=== PATIENT | female | born 1950 | race Caucasian/White ===

== ENCOUNTER 2019-01-10 18:35 | Inpatient (IN) | payer OTHER, MEDICARE ==
[2019-01-10] MEDS ORDERED: NS 1,000 ML IV ONE (19:09)
--- NOTE | 2019-01-10 19:09 | EDPHY ---
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 She was at [facility] on Monday and had free air and imaging with no identified source. Worsening pain since then. Apparently a repeat abdominal CT as an outpatient today showed diffuse colitis with free air and her left upper quadrant. The her surgeon per Dr. Lynne should be Dr. Cohn who was aware. Patient has had normal oral intake today. Pain stills in the left side upper and lower abdomen. A little bit better when she sits up and leans forward. No vomiting or diarrhea. REVIEW OF SYSTEMS: Eye: no change in vision ENT: no sore throat Cardiac: no chest pain or syncope Pulmonary: no cough or SOB Abdomen: HPI Musculoskeletal: no back pain Skin: no rash Neuro: no headache Constitutional: no fever : no urinary symptoms A comprehensive 10 point review of systems is otherwise negative aside from elements mentioned in the history of present illness. PAST MEDICAL HISTORY: Dermatomyositis Social history: Former smoker General Appearance: Alert and conversant, cooperative. Eyes: No scleral icterus. ENT, Mouth: Normal mucous membranes. Respiratory: Normal respiratory effort, breath sounds equal, lungs are clear to auscultation. Cardiovascular: Regular rate and rhythm. Gastrointestinal: Left-sided tenderness but no rebound or guarding. Neurological: Alert, face symmetric, normal motor and sensory in extremities. Skin: Bruising in both AC from previous IV sticks. Musculoskeletal: No peripheral edema. Psychiatric: Not agitated. Emergency Department course/MDM: IV hydrocortisone 100 mg discussed and consented. IV fluid hydration, surgical consultation. 1924: Discussed with Lalit, requested I consult Anitha. Discussed with Anitha at this time; Invanz 1g IV at his specific request. 2024: Discussed with Anitha and Raciel, admit to [facility]. Smoking Status: Former smoker Constitutional: Initial Vital Signs Temperature (C) 36.9 C 01/10/19 18:50 Heart Rate 109 H 01/10/19 18:50 Respiratory Rate 16 01/10/19 18:50 Blood Pressure 193/86 H 01/10/19 18:50 O2 Sat (%) 95 01/10/19 18:50 O2 Delivery Mode Room Air Allergies/Adverse Reactions: No Known Allergies Allergy (Verified 01/10/19 21:14) Home Medications: Medication Instructions Recorded Acetaminophen [Tylenol ES 500 mg 500 - 1,000 mg PO Q6 PRN 01/10/19 (*)] Clobetasol 0.05% [Temovate Topical 25 ml TP DAILY 01/10/19 Solution (RX)] Ergocalciferol [Vitamin D2 (*)] 50,000 unit PO WE 01/10/19 Hydrocortisone 2.5% 1 phillip TP BID 01/10/19 [Hydrocortisone 2.5% cream (*)] Pantoprazole Sodium [Protonix 40mg 40 mg PO DAILY 01/10/19 (*)] Sulfamethox/Tmp 800/160 mg 1 tab PO MOWEFR 01/10/19 [Bactrim Ds] Triamcinolone 0.1% [Triamcinolone 1 phillip TP BID 01/10/19 0.1% Cream (*)] Zolpidem Tartrate [Ambien 5MG (*)] 2.5 - 5 mg PO HS PRN 01/10/19 predniSONE 20 mg PO BID 01/10/19 Medical Decision Making - Data Points Laboratory Results: Laboratory Results 01/10/19 19:25 01/10/19 19:25 01/10/19 01/10/19 19:25 19:25 WBC 8.50 10^3/uL 10^3/uL (3.80-9.50) RBC 4.57 10^6/uL 10^6/uL (4.18-5.33) Hgb 13.3 g/dL g/dL (12.6-16.3) Hct 39.7 % % (38.0-47.0) MCV 86.9 fL fL (81.5-99.8) MCH 29.1 pg pg (27.9-34.1) MCHC 33.5 g/dL g/dL (32.4-36.7) RDW 14.0 % % (11.5-15.2) Plt Count 134 10^3/uL L 10^3/uL (150-400) MPV 12.1 fL H fL (8.7-11.7) Neut % (Auto) 92.3 % H % (39.3-74.2) Lymph % (Auto) 4.2 % L % (15.0-45.0) [place] % (Auto) 2.8 % L % (4.5-13.0) Eos % (Auto) 0.0 % L % (0.6-7.6) Baso % (Auto) 0.1 % L % (0.3-1.7) Nucleat RBC Rel Count 0.0 % % (0.0-0.2) Absolute Neuts (auto) 7.85 10^3/uL H 10^3/uL (1.70-6.50) Absolute Lymphs (auto) 0.36 10^3/uL L 10^3/uL (1.00-3.00) Absolute Monos (auto) 0.24 10^3/uL L 10^3/uL (0.30-0.80) Absolute Eos (auto) 0.00 10^3/uL L 10^3/uL (0.03-0.40) Absolute Basos (auto) 0.01 10^3/uL L 10^3/uL (0.02-0.10) Absolute Nucleated RBC 0.00 10^3/uL 10^3/uL (0-0.01) Immature Gran % 0.6 % % (0.0-1.1) Immature Gran # 0.05 10^3/uL 10^3/uL (0.00-0.10) RBC/WBC/PLT Morphology TNP Platelet Estimate TNP Sodium 132 mEq/L L mEq/L (135-145) Potassium 3.6 mEq/L mEq/L (3.5-5.2) Chloride 101 mEq/L mEq/L (97-110) Carbon Dioxide 23 mEq/l mEq/l (22-31) Anion Gap 8 mEq/L mEq/L (6-14) BUN 24 mg/dL H mg/dL (7-23) Creatinine 0.8 mg/dL mg/dL (0.6-1.0) Estimated GFR > 60 Glucose 182 mg/dL H mg/dL (70-100) Calcium 8.5 mg/dL mg/dL (8.5-10.4) Medications Given: Discontinued Medications Acetaminophen (Tylenol) 1,000 mg PO ONCE ONE Stop: 01/10/19 20:54 Last Admin: 01/10/19 20:56 Dose: 1,000 mg Hydrocortisone (Solucortef) 100 mg IVP EDNOW ONE Stop: 01/10/19 19:19 Last Admin: 01/10/19 19:31 Dose: 100 mg Sodium Chloride (Ns) 1,000 mls @ 0 mls/hr IV EDNOW ONE; Wide Open PRN Reason: Protocol Stop: 01/10/19 19:10 Last Admin: 01/10/19 19:31 Dose: 1,000 mls Ertapenem 1 gm/ Sodium (Chloride) 100 mls @ 200 mls/hr IV EDNOW ONE PRN Reason: Protocol Stop: 01/10/19 19:57 Last Admin: 01/10/19 20:05 Dose: 100 mls Departure - Departure Disposition: [facility] Acute Clinical Impression: Colitis Condition: Fair
[2019-01-10] MEDS ORDERED: HYDROCORTISONE 100 MG/2 ML VIAL IVP ONE (19:18)
[2019-01-10] MEDS ORDERED: ERTAPENEM 1 GM in NS 100 ML IV ONE (19:28)
[2019-01-10 19:35] LABS: PLATELET COUNT 134 10^3/uL (150-400)
[2019-01-10] MEDS ORDERED: ACETAMINOPHEN 500 MG TAB PO ONE (20:53)
[2019-01-10] MEDS ORDERED: ACETAMINOPHEN 500 MG TAB ONE (20:54)
--- NOTE | 2019-01-10 21:44 | GCON ---
[f rep st] CONSULTATION REFERRING PHYSICIAN: Adrian Smalls MD REASON FOR CONSULTATION: Intra-abdominal free air. 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 In October 2018, she had severe sinusitis with issues with a raspy voice. She was placed on prednisone and Augmentin. In November, she developed right groin pain that then became left groin pain as well, then thigh pain, lower abdominal pain and arm pain. On the , she went to Primary Care. An MASON was positive. She was started on prednisone 20 mg a day for 4 days, which was then increased to 40 mg a day for 1 week. She went to Dermatology, and a biopsy of the skin was performed, which was consistent with dermatomyositis. She went to a certified control systems technician then, who increased her prednisone to 60 mg a day over 1 week and then dropped it to 20 mg twice a day. On November 29, she had the onset of abdominal pain, which increased, and she was admitted to [facility] on the . Free air was noted. She was continued on Solu-Medrol. Zosyn was given, as well as Bactrim. She was started on Protonix and 3 topical creams. She was given IV IgG x3. On the , she had a Gastrografin swallow because of difficulty swallowing. It showed slow GI mobility. She had increasing abdominal pain with pain in her left shoulder. She was discharged from [facility] on the , eating a regular diet. Over the next several days, she had increasing left lower quadrant, left flank pain. She was miserable last night, and today, she had a followup CT which showed extensive colitis involving the ascending and transverse colon, as well as the proximal sigmoid. She has had diverticulosis. She, nonetheless, did eat this evening mashed potatoes, peas, and turkey, and that went down well for her. She presented to [facility] for further evaluation. PAST MEDICAL HISTORY: She smoked from ages [age], at a peak of a half a pack a day. She does not drink alcohol. She had a rash when she was treated for thrombophlebitis. She takes Protonix 40 mg a day; Bactrim 400 mg Monday, Monday, and Monday; prednisone 20 mg twice a day; vitamin D 5000 units daily; Tylenol; and the creams as mentioned above. SURGERIES: Include bilateral rotator cuff surgery. She had a vaginal hysterectomy and left salpingo-oophorectomy with anterior-posterior repair. She has had bilateral cataract extractions. No history of rheumatic fever, tuberculosis or hepatitis, though after IgG treatment, she was noted to be hepatitis B core antigen positive. She was told it may be related to the IgG treatment. REVIEW OF SYSTEMS: She has had hypertensive issues, with her systolics running in the 150s as opposed to 120s since the initiation of the prednisone. She has chronic nasal crusting and has been told to use Vaseline. She has a left upper central veneer. She does have tinnitus. Her last mammogram was in 2017. Her last colonoscopy was last year where she had 1 polyp removed. Diverticulosis was noted. She had 2 episodes of diverticulitis in the past. She has been told her AST has been up transiently. There are no limits on her activities. PHYSICAL EXAMINATION: VITAL SIGNS: Her blood pressure is 151/87 at a rate of 78. Respirations are 16. Room air saturations are 95%. She has received 1 g of Invanz and 100 mg of Solu-Cortef. Her white blood cell count is 8.5. Her hematocrit is 39. Her platelet count is 134. GENERAL: She is awake, alert, quite pleasant, moving around easily. HEAD: The skull is normocephalic and atraumatic. NEUROLOGIC: There are no focal OR lateralizing neurologic findings. NECK: Nontender. LYMPHATICS: There is no cervical, supraclavicular, axillary, or inguinal lymphadenopathy. Thyroid is normal. There are no carotid bruits. LUNGS: Clear to auscultation. CARDIAC: Shows S1, S2 to be normal. ABDOMEN: Nontender to cough. Psoas and obturator signs are negative. She does have slightly hypoactive bowel sounds. To palpation, her abdomen is 1 on a scale of 1-10 in all quadrants. The CAT scan does show the above-mentioned areas of colitis. She has no history of C difficile enterocolitis or recent diarrhea. The free air is near the splenic flexure. IMPRESSION: Patient with dermatomyositis, who is on steroids, as well as Protonix to minimize the adverse affects of steroids on her gastric mucosa. She appears to have had a leak of air into the left upper quadrant. She does not appear to have an acute abdomen at this point, though the steroids can of course masks that. The fact that her white count is normal and she has normoactive bowel sounds, again, makes me less concerned. I have recommended she be admitted to the medicine service, that intravenous antibiotics be continued, that a proton pump inhibitor be used. Follow flat and upright x-ray will be obtained in the morning. The patient understands the necessity for this approach. /[id number]/MODL MTDD
[2019-01-10] MEDS ORDERED: ONDANSETRON 4 MG/2 ML VIAL IVP PRN (22:41)
[2019-01-10] MEDS ORDERED: ONDANSETRON DISINTEGRATING 4 MG TAB PO PRN (22:41)
[2019-01-10] MEDS: ACETAMINOPHEN 500 MG TAB PO SCH (22:55)
[2019-01-10] MEDS: SUCRALFATE 1 GM/10 ML UDCUP PO SCH (23:03)
[2019-01-10] MEDS: NS 1,000 ML IV SCH (23:04)
--- NOTE | 2019-01-11 04:48 | PDGENHP ---
History and Physical - Chief Complaint Abdominal pain - History of Present Illness 68 yo F w/ hx of recently diagnosed dermatomyositis presents with abdominal pain. The patient was recently admitted at [facility] from 01/01-01/06 for evaluation of similar pain. During that admission free air was discovered in her abdomen with unclear source. She remained stable and improved with conservative treatment so she was eventually discharged. She did well for a few days but began to develop LUQ/L flank pain again yesterday. Her log rafter ordered a repeat CT scan for evaluation. This revealed persistent free air and colitis so she was sent to [facility] ED for evaluation. In the ED she was evaluated by general surgery who recommended antibiotics and observation. Case discussed with Dr. Schrader; records reviewed and summarized above. History Information - Allergies/Home Medication List Allergies/Adverse Reactions: No Known Allergies Allergy (Verified 01/10/19 21:14) Home Medications: Acetaminophen [Tylenol ES 500 mg (*)] 500 - 1,000 mg PO Q6 PRN 01/10/19 [Last Taken 01/10/19] Clobetasol 0.05% [Temovate Topical Solution (RX)] 25 ml TP DAILY 01/10/19 [Last Taken 01/03/19] Ergocalciferol [Vitamin D2 (*)] 50,000 unit PO WE 01/10/19 [Last Taken 01/09/19] Hydrocortisone 2.5% [Hydrocortisone 2.5% cream (*)] 1 phillip TP BID 01/10/19 [Last Taken 01/03/19] Pantoprazole Sodium [Protonix 40mg (*)] 40 mg PO DAILY 01/10/19 [Last Taken ] Sulfamethox/Tmp 800/160 mg [Bactrim Ds] 1 tab PO MOWEFR 01/10/19 [Last Taken ] Triamcinolone 0.1% [Triamcinolone 0.1% Cream (*)] 1 phillip TP BID 01/10/19 [Last Taken 01/03/19] Zolpidem Tartrate [Ambien 5MG (*)] 2.5 - 5 mg PO HS PRN 01/10/19 [Last Taken ] predniSONE 20 mg PO BID 01/10/19 [Last Taken 01/10/19 BOTH DOSES] I have personally reviewed and updated: family history, medical history - Past Medical History Additional medical history: Dermatomyositis - Surgical History Reports: hysterectomy Additional surgical history: L oophorectomy. Bilateral shoulder surgeries - Family History Additional family history: Brother has ankylosing spondylitis - Social History Smoking Status: Former smoker Review of Systems Review of Systems: Physical Exam Physical Exam: Temp Pulse Resp BP Pulse Ox 36.7 C 74 16 152/91 H 95 01/11/19 03:30 01/11/19 03:30 01/11/19 03:30 01/11/19 03:30 01/11/19 03:30 Eyes: PERRL, EOMI Ears, Nose, Mouth, Throat: moist mucous membranes, no oral mucosal ulcers Cardiovascular: regular rate and rhythym, no murmur, rub, or gallop Respiratory: no respiratory distress, clear to auscultation Gastrointestinal: normoactive bowel sounds, tenderness (LUQ, L flank) Skin: warm, normal color Musculoskeletal: no joint effusions, other (Proximal muscle weakness UE's and LE 's) Neurologic: AAOx3 Psychiatric: interacting appropriately, not anxious Lab Data & Imaging Review 01/10/19 19:25 01/10/19 19:25 WBC 8.50 10^3/uL (3.80-9.50) 01/10/19 19:25 RBC 4.57 10^6/uL (4.18-5.33) 01/10/19 19:25 Hgb 13.3 g/dL (12.6-16.3) 01/10/19 19:25 Hct 39.7 % (38.0-47.0) 01/10/19 19:25 MCV 86.9 fL (81.5-99.8) 01/10/19 19:25 MCH 29.1 pg (27.9-34.1) 01/10/19 19:25 MCHC 33.5 g/dL (32.4-36.7) 01/10/19 19:25 RDW 14.0 % (11.5-15.2) 01/10/19 19:25 Plt Count 134 10^3/uL (150-400) L 01/10/19 19:25 MPV 12.1 fL (8.7-11.7) H 01/10/19 19:25 Neut % (Auto) 92.3 % (39.3-74.2) H 01/10/19 19:25 Lymph % (Auto) 4.2 % (15.0-45.0) L 01/10/19 19:25 [place] % (Auto) 2.8 % (4.5-13.0) L 01/10/19 19:25 Eos % (Auto) 0.0 % (0.6-7.6) L 01/10/19:25 Baso % (Auto) 0.1 % (0.3-1.7) L 01/10/19 19:25 Nucleat RBC Rel Count 0.0 % (0.0-0.2) 01/10/19: Absolute Neuts (auto) 7.85 10^3/uL (1.70-6.50) H 01/10/19 19:25 Absolute Lymphs (auto) 0.36 10^3/uL (1.00-3.00) L 01/10/19:25 Absolute Monos (auto) 0.24 10^3/uL (0.30-0.80) L 01/10/19 19:25 Absolute Eos (auto) 0.00 10^3/uL (0.03-0.40) L 01/10/19:25 Absolute Basos (auto) 0.01 10^3/uL (0.02-0.10) L 01/10/19: Absolute Nucleated RBC 0.00 10^3/uL (0-0.01) 01/10/19: Immature Gran % 0.6 % (0.0-1.1) 01/10/19: Immature Gran # 0.05 10^3/uL (0.00-0.10) 01/10/19 19:25 RBC/WBC/PLT Morphology TNP 01/10/19 19: Platelet Estimate TNP 01/10/19 19:25 Sodium 132 mEq/L (135-145) L 01/10/19 19:25 Potassium 3.6 mEq/L (3.5-5.2) 01/10/19 19:25 Chloride 101 mEq/L (97-110) 01/10/19 19:25 Carbon Dioxide 23 mEq/l (22-31) 01/10/19 19:25 Anion Gap 8 mEq/L (6-14) 01/10/19 19:25 BUN 24 mg/dL (7-23) H 01/10/19 19:25 Creatinine 0.8 mg/dL (0.6-1.0) 01/10/19 19:25 Estimated GFR > 60 01/10/19 19:25 Glucose 182 mg/dL (70-100) H 01/10/19 19:25 Calcium 8.5 mg/dL (8.5-10.4) 01/10/19 19:25 Assessment & Plan Assessment: 68 yo F w/ hx of recently diagnosed dermatomyositis presents with abdominal pain , found to have colitis and persistent free air in her abdomen. Plan: 1. Colitis - Unclear etiology; patient has no prior hx of C. Diff but she has received recent antibiotics and steroids, putting her at risk for C. Diff. CT [facility] - C. Diff PCR ordered - Invanz ordered per general surgery 2. Intraperitoneal air - Unclear etiology, per radiology the source is likely from the splenic flexure. She has been evaluated by general surgery who have recommended a conservative approach at this time. Her abdomen is soft and only mildly tender at this time. - Appreciate surgical consultation - Invanz ordered daily - Serial abdominal exams 3. Dermatomyositis - Diagnosed in November of this year after development of rash and weakness. She is currently on prednisone for this but continues to be symptomatic. She is up to date with age appropriate cancer screening ( Colonoscopy in 2018, mammography 2017, and normal pap smear reported prior to total hysterectomy, althoug records would help to confirm this portion.) - Continue prednisone - Bactrim for PCP prophylaxis 4. Hyponatremia - Mild, likely due to dehydration - Monitor BMP Diet - NPO Code - Full Ppx - SCDs Dispo - Admit under inpatient status
[2019-01-11 04:53] LABS: PLATELET COUNT 110 10^3/uL (150-400)
[2019-01-11] MEDS: ACETAMINOPHEN 500 MG TAB PO SCH ×3 (05:06→23:00)
[2019-01-11] MEDS: SUCRALFATE 1 GM/10 ML UDCUP PO SCH ×4 (05:06→20:24)
[2019-01-11] MEDS: PANTOPRAZOLE SODIUM 40 MG VIAL IVP SCH ×2 (08:43→20:24)
[2019-01-11] MEDS ORDERED: SULFAMETHOX/TMP 800/160 MG 1 TAB PO SCH (09:00)
--- NOTE | 2019-01-11 09:10 | HOSPPROG ---
Hospitalist Progress Note Assessment/Plan: # suspected contained colonic perf, free intraperitoneal air - agree with conservative management at this point given lack of peritoneal findings - cont invanz - appreciate gen surg # colitis, diffuse with abdominal pain - invanz # recent dx dermatomyositis - cont steroids, bactrim for pcp ppx Subjective: abd pain persistent but better Objective: Vital Signs Temp Pulse Resp BP Pulse Ox 36.8 C 63 16 150/77 H 92 01/11/19 07:47 01/11/19 07:47 01/11/19 07:47 01/11/19 07:47 01/11/19 07:47 Laboratory Results 01/11/19 04:40 01/11/19 04:40 01/10/19 01/11/19 01/12/19 05:59 05:59 05:59 Intake Total 1000 Balance 1000 chart reviewed discussed with Dr Welsh CT reviewed - IMPRESSION: 1. Interval development of mural thickening, submucosal edema and inflammatory change associated with the colon. Findings consistent with diffuse colitis. C. difficile colitis is a consideration given recent hospitalization. 2. The volume of retroperitoneal and intraperitoneal gas has decreased from the prior study. The source of perforation is likely the splenic flexure. Given the perforation, surgical consultation should be considered. 3. No drainable peritoneal abscess. - Physical Exam Constitutional: no apparent distress, appears nourished Cardiovascular: regular rate and rhythym, no murmur, rub, or gallop Respiratory: no respiratory distress, no rales or rhonchi, clear to auscultation Gastrointestinal: normoactive bowel sounds, other (soft, TTP diffusely (mild), no guarding or rebound) ICD10 Worksheet Patient Problems: Problems Problem Status Onset Colitis Acute
--- NOTE | 2019-01-11 09:56 | PDMN ---
Medical Necessity Medical necessity: Pt meets IP criteria as of 01/10/2019 per and [facility] REYE[facility] ( [facility]); est los > 2 mn for ongoing tx and management of colitis with suspected contained colonic perforation evidenced by free intraperitoneal air; requiring serial imaging, surgical consultation, IV ABX, IVF, and management of chronic condition dermatomyositis on chronic steroids,
[2019-01-11] MEDS: SULFAMETHOX/TMP 800/160 MG 1 TAB PO SCH (14:07)
[2019-01-11] MEDS: predniSONE 20 MG TAB PO SCH ×2 (14:07→20:25)
--- NOTE | 2019-01-11 15:28 | PDCONSULT ---
Sprinkler Irrigation Equipment Mechanic Note: 01/11/2019 PAD#1 Assessment: Patient with hx of steroid use for dermatositis who was previously hospitalized with intra-abdominal free air, Tx'd with antibiotics. Has colitis in ascending, transverse, sigmoid and rectum. VSS, WBC stable. CT from [facility] pending for comparison. Plan: Continue IV antibiotics, NPO, F/u labs. Hope to avoid surgical intervention. Stool pending for C. Diff
[2019-01-11] MEDS: ERTAPENEM 1 GM in NS 100 ML IV SCH (20:24)
[2019-01-11] MEDS: NS 1,000 ML IV SCH (20:24)
[2019-01-12] MEDS: SUCRALFATE 1 GM/10 ML UDCUP PO SCH ×4 (03:44→20:52)
[2019-01-12 06:15] LABS: PLATELET COUNT 104 10^3/uL (150-400)
[2019-01-12] MEDS: ACETAMINOPHEN 500 MG TAB PO SCH ×4 (07:12→20:56)
[2019-01-12] MEDS: NS 1,000 ML IV SCH (07:13)
[2019-01-12] MEDS: PANTOPRAZOLE SODIUM 40 MG VIAL IVP SCH ×2 (08:16→20:52)
[2019-01-12] MEDS: predniSONE 20 MG TAB PO SCH ×2 (08:16→21:00)
--- NOTE | 2019-01-12 11:15 | HOSPPROG ---
Hospitalist Progress Note Assessment/Plan: DIAGNOSES: * Suspected bowel perforation with free abdominal air and peritonitis; worsened symptoms after initial hospitalization elsewhere, currently improving on antibiotic and steroid * Reading of outside CT apparently showed colitis in addition to free air in the ascending and transverse, would be concerned about Crohn's disease in the setting of her recent dermatomyositis illness * Mild normocytic anemia likely due to the above * Hypertension, possibly related to her steroid medication * History of oral pemphigus * Family history of autoimmune diseases including ankylosing spondylitis and others PLANS: * I will review her CT images which we have here with our radiologist today to assess the injured degree and location of the colitis * Continue current antibiotic * Continue current dose of steroid prednisone 40 twice daily * Check serologic studies for possible inflammatory bowel disease I reviewed in detail with Dr. Miquel Welsh today SUBJECTIVE: Some improvement in pain Not hungry No fever symptoms OBJECTIVE Vitals reviewed: Blood pressures remain elevated, otherwise normal without fever Wire Stitcher Machine, my review: Exam: alert oriented skin warm dry color ok resps not labored lungs clear BSs heart regular abd soft nondistended nontender, bowel sounds present limbs warm, no edema iv site ok Objective: Vital Signs Temp Pulse Resp BP Pulse Ox 36.5 C 79 16 145/79 H 96 01/12/19 08:00 01/12/19 08:00 01/12/19 08:00 01/12/19 08:00 01/12/19 08:00 Laboratory Results 01/12/19 04:55 01/12/19 04:55 01/11/19 01/12/19 01/13/19 06:59 06:59 06:59 Intake Total 1000 1200 Balance 1000 1200 - Time Spent With Patient Time Spent with Patient: greater than 35 minutes Time Spent with Patient: Greater than 35 minutes spent on this patients care, greater than 50% of time spent counseling, educating, and coordinating care regarding the above mentioned plan. ICD10 Worksheet Patient Problems: Problems Problem Status Onset Colitis Acute
--- NOTE | 2019-01-12 11:54 | PDCONSULT ---
Messenger Office Note: 01/12/2019 Assessment: Abdominal discomfort slightly increased but exam benign, WBC stable Suggestions: Continue NPO, IV fluid changed to D5NS, follow clinically, agree with f/u colonoscopy 8 weeks post resolution. Note that her last colonoscopy last spring was remarkable only for diverticulosis
[2019-01-12] MEDS: D5W NS 1,000 ML IV SCH ×2 (12:55→20:51)
--- NOTE | 2019-01-12 15:52 | ASMTCMCOM ---
CM Note CM Note Notes: Pt admitted to hospital for abd/flank pain. Imaging reveals free air and colitis, she is on IV abx. No therapies ordered, anticipate she will dc home w/support of when medically stable. CM available for any changes. She is an RN at [employer] Plan: Independent Date Signed: 01/12/2019 03:52 PM Electronically Signed By:Elodia Nayak RN
[2019-01-12] MEDS: ERTAPENEM 1 GM in NS 100 ML IV SCH (20:51)
[2019-01-12] MEDS: ZOLPIDEM TARTRATE 5 MG TAB PO PRN (20:58)
[2019-01-13] MEDS: SUCRALFATE 1 GM/10 ML UDCUP PO SCH ×4 (04:25→20:42)
[2019-01-13 05:49] LABS: PLATELET COUNT 95 10^3/uL (150-400)
[2019-01-13] MEDS: D5W NS 1,000 ML IV SCH ×2 (06:17→15:41)
[2019-01-13] MEDS: ACETAMINOPHEN 500 MG TAB PO SCH ×5 (06:18→20:48)
[2019-01-13] MEDS: PANTOPRAZOLE SODIUM 40 MG VIAL IVP SCH ×2 (08:10→20:44)
[2019-01-13] MEDS: predniSONE 20 MG TAB PO SCH ×2 (08:11→20:43)
--- NOTE | 2019-01-13 13:24 | PDCONSULT ---
Knife Setter Note: 01/13/2019 PAD#3 assessment: Doing well, Moving bowels/passing gas, feels better today, VSS, WBC ok, platelets decreasing, Abdomen soft and non tender. plan: will try clear liquids
--- NOTE | 2019-01-13 13:57 | HOSPPROG ---
Hospitalist Progress Note Assessment/Plan: DIAGNOSES: * Suspected bowel perforation with free abdominal air and peritonitis; worsened symptoms after initial hospitalization elsewhere, currently improving on antibiotic and steroid * Reading of outside CT apparently showed colitis in addition to free air in the ascending and transverse, would be concerned about Crohn's disease in the setting of her recent dermatomyositis illness * Mild normocytic anemia likely due to the above * Hypertension, possibly related to her steroid medication * History of oral pemphigus * Family history of autoimmune diseases including ankylosing spondylitis and others PLANS: * begin trial of oral liquids * Continue current antibiotic * Continue current dose of steroid prednisone 40 twice daily * Check serologic studies for possible inflammatory bowel disease * I reviewed the issue with colitis and perforation with Dr Aranda of GI who agrees that after suffficient healing time from her perforation, colonoscopy should be done in the outpt setting * I reviewed all of the above again today with the patient at bedside; she had many questions about diagnoses, immune function, logistics of current treatment and ongoing immune therapy plans, etc which I answered to her satisfaction at this time I have reviewed case with Dr Welsh SUBJECTIVE: Some improvement in pain Not hungry No fever symptoms OBJECTIVE Vitals reviewed: Blood pressures remain elevated, otherwise normal without fever [employer], my review: Exam: alert oriented skin warm dry color ok resps not labored lungs clear BSs heart regular abd soft nondistended nontender, bowel sounds present limbs warm, no edema iv site ok Imaging: today I reviewed images of the outside CT scans from [facility] with Dr Mcgowan. There is significant diffuse colitis from the cecum to the lower descending colon, with no visible involvement of the sigmoid or the terminal ileum. Objective: Vital Signs Temp Pulse Resp BP Pulse Ox 36.5 C 69 18 133/77 H 96 01/13/19 12:00 01/13/19 12:00 01/13/19 12:00 01/13/19 12:00 01/13/19 12:00 Laboratory Results 01/13/19 05:04 01/13/19 05:04 01/12/19 01/13/19 01/14/19 06:59 06:59 06:59 Intake Total 1200 0 Balance 1200 0 - Time Spent With Patient Time Spent with Patient: greater than 35 minutes Time Spent with Patient: Greater than 35 minutes spent on this patients care, greater than 50% of time spent counseling, educating, and coordinating care regarding the above mentioned plan. ICD10 Worksheet Patient Problems: Problems Problem Status Onset Colitis Acute
[2019-01-13] MEDS: ERTAPENEM 1 GM in NS 100 ML IV SCH (20:45)
[2019-01-13] MEDS: ZOLPIDEM TARTRATE 5 MG TAB PO PRN (20:57)
[2019-01-14] MEDS: D5W NS 1,000 ML IV SCH (01:10)
[2019-01-14] MEDS: ACETAMINOPHEN 500 MG TAB PO SCH ×3 (05:02→23:42)
[2019-01-14] MEDS: SUCRALFATE 1 GM/10 ML UDCUP PO SCH ×4 (05:02→20:03)
[2019-01-14 05:08] LABS: PLATELET COUNT 96 10^3/uL (150-400)
--- NOTE | 2019-01-14 09:11 | PDCONSULT ---
Primary Therapist Note: 01/14/2019 Assessment: Tolerating a clear liquid diet. pain continues to resolve and is almost completely gone. Abdomen sfot and non-tender, moving bowels. Nothing further to add. Will sign off. Please re-consult if further need develops.
[2019-01-14] MEDS: PANTOPRAZOLE SODIUM 40 MG VIAL IVP SCH ×2 (09:40→20:03)
[2019-01-14] MEDS: predniSONE 20 MG TAB PO SCH ×2 (10:24→20:54)
--- NOTE | 2019-01-14 14:41 | ASMTCMCOM ---
CM Note CM Note Notes: D/C plan remains independent at this time. CM available if d/c needs arise. Date Signed: 01/14/2019 02:41 PM Electronically Signed By:Donita Grossman LCSW
[2019-01-14] MEDS: SULFAMETHOX/TMP 800/160 MG 1 TAB PO SCH (16:00)
--- NOTE | 2019-01-14 16:11 | HOSPPROG ---
Hospitalist Progress Note Assessment/Plan: DIAGNOSES: * Suspected bowel perforation with free abdominal air and peritonitis; worsened symptoms after initial hospitalization elsewhere, currently improving on antibiotic and steroid * Reading of outside CT apparently showed colitis in addition to free air in the ascending and transverse, would be concerned about Crohn's disease in the setting of her recent dermatomyositis illness * Mild normocytic anemia likely due to the above * Hypertension, possibly related to her steroid medication * History of oral pemphigus * Family history of autoimmune diseases including ankylosing spondylitis and others PLANS: * begin trial of oral liquids * Continue current antibiotic * Continue current dose of steroid prednisone 40 twice daily * I reviewed with Dr Aranda of GI today, again w plan for colonoscpy in about 8 weeks * pt again w many questions about plan of care, course of illness, etc which i answered for her I have reviewed case with Dr Welsh today as well SUBJECTIVE: Overall feeling better with continued decrease in pain the pain is still present in left abdomen No fever symptoms Taking clear liquids without difficulty, ambulating well OBJECTIVE Vitals reviewed: Blood pressures remain elevated, otherwise normal without fever Clam [employer], my review: Exam: alert oriented skin warm dry color ok resps not labored lungs clear BSs heart regular abd soft nondistended nontender, bowel sounds present limbs warm, no edema iv site ok Imaging: today I reviewed images of the outside CT scans from [facility] with Dr Mcgowan. There is significant diffuse colitis from the cecum to the lower descending colon, with no visible involvement of the sigmoid or the terminal ileum. Objective: Vital Signs Temp Pulse Resp BP Pulse Ox 36.6 C 93 16 167/90 H 97 01/14/19 12:00 01/14/19 12:00 01/14/19 12:00 01/14/19 12:00 01/14/19 12:00 Laboratory Results 01/14/19 04:40 01/13/19 05:04 01/13/19 01/14/19 01/15/19 06:59 06:59 06:59 Intake Total 0 400 Balance 0 400 ICD10 Worksheet Patient Problems: Problems Problem Status Onset Colitis Acute
--- NOTE | 2019-01-14 17:27 | PDCONSULT ---
Privacy Director Note: [email or web address] p: f: REFERRING PHYSICIAN: I was asked to see the patient in consultation by Dr. Salazar Greco for a chief complaint of abdominal pain, pneumoperitoneum, suspected colitis HISTORY OF PRESENT ILLNESS: Felicitas Tolentino (Sue) is a 68-year-old female, previously known to me, from a screening colonoscopy performed on 02/11/2018 at our [place] facility. Since the screening colonoscopy a she has developed several symptoms including a new rash, weakness, muscle aches and about 2-3 months ago was diagnosed with dermatomyositis. She is currently under the care of of Rheumatology. Nearly 2 months ago she also developed a upper respiratory infection and sinusitis. She was also prescribed antibiotics around this time. Then she developed abdominal bloating, right lower quadrant and periumbilical abdominal pain in the month of October. She presented her [facility] ER and a CT scan there revealed pneumoperitoneum as well as extensive colitis. She was treated with antibiotics and transitioned to home on antibiotics. She then developed a recurrence of her abdominal pain and presented to [facility] on 01/10/2019 where repeat imaging revealed continued pneumoperitoneum as well as colitis. She was started on IV antibiotics. Today she reports that her previous 10/10 abdominal pain has decreased to 1/10 abdominal pain. Throughout this time she has had loose bowel movements with some urgency though denies any overt hematochezia. She has that all her life that she has had some form of irritable bowel syndrome. PAST MEDICAL HISTORY: Dermatomyositis, mucous membrane past pemphigoid, PAST SURGICAL HISTORY: Bilateral rotator cuff surgery, total abdominal hysterectomy with oophorectomy and anterior-posterior repair, bilateral cataract extractions HOME MEDICATIONS: Prednisone 20 mg twice daily, IVIG, Ambien 2.5 mg at bedtime , Bactrim 800/160 mg tab p.o. 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 , tobacco user intermittently, 51 years ROS: I have performed a comprehensive review of systems, which is negative except for pertinent positives and/or pertinent negatives as noted above in the HPI PHYSICAL EXAM: Vitals temperature 36.8 heart rate BP 163/80 76 R 18 96% on room CONSTITUTIONAL: alert, unwell appearing, in no distress MENTAL STATUS: alert, oriented to person, place and time PSYCH: mood appropriate for affect EYES: pupils equal and reactive extra ocular eye movements intact EARS: right and left ear normal NOSE: normal and patent, no erythema, discharge or polyps MOUTH: mucous membranes moist, pharynx normal without lesions, Mallampati I HEAD: normal NECK: supple, no significant adenopatchy CHEST: clear to auscultation, no wheezes, rales or rhonchi, symmetric air entry CARDIOVASCULAR: normal rate, regular rhythm, normal S1,S2, no murmurs, rubs, clicks or gallops GASTROINTESTINAL: soft, non tender, non distended, no masses or organomegaly NEUROLOGICAL: alert, oriented, normal speech, no focal findings or movement disorder noted. No asterixis. MUSCULOSKELETAL: no joint tenderness, deformity or swelling SKIN: normal coloration and turgor, no rashes, no suspicious skin lesions CURRENT DATA: LABS: Date 01/14/2019 CBC: WBC 4.3 HGB 11.5 platelets 96 Date 01/12/2019 Clostridium difficile PCR negative IMAGING: Date 01/12/2019 Supine and upright abdominal radiographs Impression stable small focus of extraluminal air in the left upper quadrant, otherwise unremarkable exam CT scans from a [facility] revealed diffuse colitis with involvement of the cecum to lower descending with no visible vomit of the sigmoid or terminal ileum ENDOSCOPY: 02/11/2018 Screening colonoscopy performed by myself, terminal ileum appeared unremarkable , colon appeared normal except for diverticulosis of the descending sigmoid colon ASSESSMENT: Radha Tolentino is a jessica 68-year-old female with dermatomyositis on prednisone and IVIG therapy presenting with over 6 weeks at abdominal pain attributed it to a nonspecific colitis resulting in a micro perforation. This is very concerning for either a Crohn's colitis versus a very severe ulcerative colitis. Infectious colitis from Clostridium difficile is unlikely given the negative PCR. Clinically she is improving on IV antibiotics and likely the prednisone is also helping this underlying colitis as well. RECOMMENDATIONS: 1.agree with advancing diet as tolerated per primary team 2.we will set an outpatient follow-up visit prior to her next colonoscopy 3.we discussed performing an outpatient colonoscopy again at our [place] facility in upcoming 6-8 weeks. 4.I will follow up with Dr. Lynne in regards to his plans for immunosuppression as to hopefully coordinate the medication to help of dermatomyositis and her underlying colitis 5.Thank you for this consultation Sincerely, Rosa M Aranda MD [facility]
[2019-01-14] MEDS: ERTAPENEM 1 GM in NS 100 ML IV SCH (20:03)
[2019-01-15] MEDS: ACETAMINOPHEN 500 MG TAB PO SCH (01:25)
[2019-01-15] MEDS: SUCRALFATE 1 GM/10 ML UDCUP PO SCH ×4 (04:29→21:45)
[2019-01-15] MEDS: predniSONE 20 MG TAB PO SCH ×2 (08:18→18:35)
[2019-01-15] MEDS: PANTOPRAZOLE SODIUM 40 MG VIAL IVP SCH (08:19)
--- NOTE | 2019-01-15 09:23 | SOAPPROG ---
SOAP Progress Note Assessment/Plan: Assessment: Felicitas Tolentino is a 68 year old female with dermatomyositis and unspecified colitis (Crohn's vs severe UC vs other) leading to a microperforation. She is clinically improving with conservative management. Does endorse some diarrhea today, could be underlying colitis vs antibiotic induced diarrhea. Previous CDIFF PCR negative and would not repeat testing at this time. Plan: 1. Okay to advance diet as tolerated 2. My office to schedule a follow up office visit to discuss timing of colonoscopy 3. Continue antibiotics as an outpatient at least another 2 weeks 4. Patient on prednisone through [employer] and should continue these as well Rosa M Aranda MD 01/15/19 09:20 01/15/19 09:23 Subjective: hungry, wants to eat, having some loose stool, no fever Objective: Vital Signs Temp Pulse Resp BP Pulse Ox 36.3 C 98 18 142/72 H 95 01/15/19 08:00 01/15/19 08:00 01/15/19 08:00 01/15/19 08:00 01/15/19 08:00 Laboratory Results 01/14/19 04:40 01/13/19 05:04 01/14/19 01/15/19 01/16/19 05:59 05:59 05:59 Intake Total 400 400 Balance 400 400 Physical Exam - Physical Exam General Appearance: alert, no apparent distress Respiratory: chest non-tender, lungs clear, normal breath sounds Cardiac/Chest: regular rate, rhythm Abdomen: normal bowel sounds, non-tender, soft Skin: normal color Neuro/Psych: normal mood/affect, oriented x 3 ICD10 Worksheet Patient Problems: Problems Problem Status Onset Colitis Acute
[2019-01-15] MEDS: ACETAMINOPHEN 500 MG TAB PO PRN ×2 (11:48→21:45)
--- NOTE | 2019-01-15 15:52 | HOSPPROG ---
Hospitalist Progress Note Assessment/Plan: DIAGNOSES: * Suspected bowel perforation with free abdominal air and peritonitis; worsened symptoms after initial hospitalization elsewhere, currently improving on antibiotic and steroid * Reading of outside CT apparently showed colitis in addition to free air in the ascending and transverse, would be concerned about Crohn's disease in the setting of her recent dermatomyositis illness (she also has oral pemphigus, has a daughter with Crohn's disease and ankylosing spondylitis and other family members with autoimmune disorders) * Mild normocytic anemia likely due to the above * Hypertension, possibly related to her steroid medication * History of oral pemphigus * Family history of autoimmune diseases including ankylosing spondylitis and others PLANS: * begin trial of regular solid diet * Continue current antibiotic; plan on discharging on oral antibiotics for 2 weeks * Continue current dose of steroid prednisone 40 twice daily * plan for colonoscpy in about 8 weeks * pt again w many questions about plan of care, course of illness, etc which i answered for her * She will need follow-up with Dr. Lynne in Rheumatology Clinic shortly after discharge as well as ongoing care with Gastroenterology; Dr. Aranda is intending to talk with Dr. Lynne in all review with Dr. Lynne at this time patient is discharged Anticipate likely discharge tomorrow she is tolerating oral diet of regular foods SUBJECTIVE: So far tolerating full liquid diet reasonably well but is having more loose stool than previous, without blood and without increase in pain Overall her left lower quadrant pain continues to improve slowly again today No fever symptoms No other new symptoms OBJECTIVE Vitals reviewed: Still mild hypertension at times, otherwise normal without fever Exam: alert oriented skin warm dry color ok resps not labored lungs clear BSs heart regular abd soft nondistended nontender, bowel sounds present limbs warm, no edema iv site ok Objective: Vital Signs Temp Pulse Resp BP Pulse Ox 36.3 C 98 18 142/72 H 95 01/15/19 08:00 01/15/19 08:00 01/15/19 08:00 01/15/19 08:00 01/15/19 08:00 Laboratory Results 01/14/19 04:40 01/13/19 05:04 01/14/19 01/15/19 01/16/19 06:59 06:59 06:59 Intake Total 400 400 Balance 400 400 ICD10 Worksheet Patient Problems: Problems Problem Status Onset Colitis Acute
[2019-01-15] MEDS: ERTAPENEM 1 GM in NS 100 ML IV SCH (21:44)
[2019-01-15] MEDS: PANTOPRAZOLE SODIUM 40 MG TAB PO SCH (21:45)
[2019-01-16] MEDS: SUCRALFATE 1 GM/10 ML UDCUP PO SCH ×2 (05:12→11:57)
[2019-01-16] MEDS: ACETAMINOPHEN 500 MG TAB PO PRN (05:19)
[2019-01-16] MEDS: predniSONE 20 MG TAB PO SCH (06:16)
[2019-01-16 07:54] VITALS: BP 134/89
[2019-01-16] MEDS: PANTOPRAZOLE SODIUM 40 MG TAB PO SCH (08:12)
--- NOTE | 2019-01-16 10:38 | ASMTCMCOM ---
CM Note CM Note Notes: 01/16/2019 Case Mangement Note Discussed with MD this morning. There are no anticipated case management d/c needs. Case Management d/c poc: independent with follow up as directed. Case Management available if needs change. Date Signed: 01/16/2019 10:38 AM Electronically Signed By:Aleah Oneal RN
--- NOTE | 2019-01-16 10:55 | PDDCSUM ---
Discharge Summary Discharge Summary: DISCHARGE DIAGNOSES: * Acute peritonitis with free abdominal air, suspected bowel perforation * Inflammation of ileum and colon suspicious for possible Crohn's disease or other inflammatory bowel illness * Anemia, likely due to above * Personal history of dermatomyositis and oral pemphigus * Family history of Crohn's, ankylosing spondylitis and other immune illnesses CONSULTANTS: Dr. Rosa M Lafleur [facility] COURSE SUMMARY: This patient who has a history of what she thought was irritable bowel syndrome , and recently diagnosed with dermatomyositis, presented initially 2 weeks prior to this admission at [facility] [place] with abdominal pain found to have free abdominal air. She is presumed to have a bowel perforation and was treated with antibiotics. She was getting better but at home had symptoms worsening again so came back in and still has abdominal free air along with fevers and signs of mild peritonitis. However her exam did not suggest a need for urgent surgery and there is no evidence of ischemic bowel. She was admitted the hospital and treated with IV antibiotics to which she has responded slowly but very nicely. At this time her pain is almost entirely gone. Fevers are resolved. She has no signs of sepsis. Her abdomen exam is benign. Is recommended she complete another 2 weeks of antibiotics for treating of her peritonitis. On review of her outside CT scans from the [facility] [place] I did notice that she does have significant inflammation of the ascending transverse and descending colons with what looks like sparing of the sigmoid and rectum. There is probably a bit of terminal ileitis as well. Particularly with her previous history of oral pemphigus and her recent history of dermatomyositis, suspicion is raised for Crohn's disease or other similar illness. I requested Dr. Coleman to see her who had the similar suspicions. We do not feel that colonoscopy is prudent at this time in the midst of probable bowel perforation but would recommend doing that in 2 months as long she continues to improve. If she gets sick or ill again she may come to needing either surgery or colonoscopy sooner. She is currently under the care of Dr. Ck Lynne for her dermatomyositis and will see him next week. She will begin IVIG treatments for that in the next couple of weeks. PENDING TEST RESULTS: None MEDICATION CHANGES: Addition of Cipro 500 twice daily and Flagyl 250 three times daily for 2 weeks FOLLOW-UP PLAN: She will see Dr. Rosa M Aranda in 2 weeks in GI clinic, with plans for colonoscopy likely in February for diagnosis of bowel disease She will see Dr. Lynne next week in rheumatology clinic She has an appointment at [facility] to be set up for Ig treatments for her dermatomyositis Greater than 35 minutes bedside and care coordination time today
--- NOTE | 2019-01-16 11:03 | ASDISCHSUM ---
Discharge Information Plan Status:Home with No Needs Medically Cleared to Leave:01/15/2019 Discharge Date:01/15/2019 CM D/C Disposition:Home, Routine, Self-Care ADT D/C Disposition:Home, Routine, Self-Care Projected Discharge Date:01/15/2019 Transportation at D/C:Family Discharge Delay Reason: Follow-Up Date:01/15/2019 Discharge Slot: Final Diagnosis: Placement Information Patient Contact Information Contact Name:PEDRO Relationship:Randall Address:[address] City:[place] Alternate Phone: [facility]/Zip Code:[place] [address] Email: Financial Information Financial Class:Medicare Primary Plan Desc:MEDICARE INPATIENT Primary Plan Number:[id number] Secondary Plan Desc:[employer]/MDR SUPPLEMENT Secondary Plan Number:[id number] Assessment Information [facility] CM Progress Note CM Note CM Note Notes: Pt admitted to hospital for abd/flank pain. Imaging reveals free air and colitis, she is on IV abx. No therapies ordered, anticipate she will dc home w/support of when medically stable. CM available for any changes. She is an RN at [employer] Plan: Independent Date Signed: 01/12/2019 03:52 PM Electronically Signed By:Elodia Nayak RN [facility] CM Progress Note CM Note CM Note Notes: D/C plan remains independent at this time. CM available if d/c needs arise. Date Signed: 01/14/2019 02:41 PM Electronically Signed By:Donita Grossman LCSW [facility] CM Progress Note CM Note CM Note Notes: 01/16/2019 Case Mangement Note Discussed with this morning. There are no anticipated case management d/c needs. Case Management d/c poc: independent with follow up as directed. Case Management available if needs change. Date Signed: 01/16/2019 10:38 AM Electronically Signed By:Aleah Oneal RN Intervention Information
[2019-01-16] MEDS: SULFAMETHOX/TMP 800/160 MG 1 TAB PO SCH (12:53)
== END 2019-01-16 13:04 | disposition home or self-care (01) | DRG 393 ==
LOC: F3E 21:50
PROVIDERS: ADMIT Student in an Organized Health Care Education/Training Program; ATTEND Student in an Organized Health Care Education/Training Program
DX: K63.1 Perforation of intestine (nontraumatic) (principal); K65.0 Generalized (acute) peritonitis; M33.90 Dermatopolymyositis, unspecified, organ involvement unspecified; K52.9 Noninfective gastroenteritis and colitis, unspecified; D64.9 Anemia, unspecified; E86.0 Dehydration; Z87.891 Personal history of nicotine dependence; I15.8 Other secondary hypertension; T38.0X5A Adverse effect of glucocorticoids and synthetic analogues, initial encounter
CPT/HCPCS: 96374; J1335; J1720; J7512

== ENCOUNTER → 2019-03-22 | Outpatient (CLI) | payer OTHER, MEDICARE | LOC: BRMIMAGING 10:05 | PROVIDERS: ATTEND Internal Medicine Rheumatology | DX: Z12.31 Encounter for screening mammogram for malignant neoplasm of breast (principal); Z13.820 Encounter for screening for osteoporosis; M85.89 Other specified disorders of bone density and structure, multiple sites; Z78.0 Asymptomatic menopausal state ==